=== PATIENT | male | born 2000 | race Caucasian/White ===

== ENCOUNTER 2023-04-23 21:19 | Emergency (ER) | payer SELFPAY ==
--- NOTE | 2023-04-23 21:58 | PC.NURSE ---
patient states wait is too long and left prior to triage
== END 2023-04-23 22:40 | disposition left against medical advice (07) ==
PROVIDERS: PCP Pediatrics
DX: Z53.21 Procedure and treatment not carried out due to patient leaving prior to being seen by health care provider (principal)
CPT/HCPCS: 99199